=== PATIENT | female | born 1990 | race Caucasian/White ===

== ENCOUNTER 2017-11-19 17:35 | Emergency (ER) | payer OTHER ==
[~2017-11-19] VITALS: Ht 149.9 cm; Wt 43.5 kg
[2017-11-19 17:52] VITALS: BP 114/74; Ht 149.9 cm; Wt 43.5 kg
== END 2017-11-19 19:09 | disposition home or self-care (01) ==
LOC: ED 17:35
DX: R10.32 Left lower quadrant pain (principal); R19.7 Diarrhea, unspecified; K42.9 Umbilical hernia without obstruction or gangrene; Z91.041 Radiographic dye allergy status

== ENCOUNTER 2018-03-23 19:37 | Emergency (ER) | payer OTHER ==
[~2018-03-23] VITALS: Ht 149.9 cm; Wt 44.5 kg
[2018-03-23 19:55] VITALS: BP 113/62; Ht 149.9 cm; Wt 44.5 kg
[2018-03-23 20:25] LABS: BASOPHIL % 0.4 % (0-2); RED CELL DISTRIBUTION WIDTH 13.5 % (11.5-14.5)
[2018-03-23 20:34] LABS: PLATELET COUNT 411 x10^3mcL (130-400)
[2018-03-23 20:36] LABS: CALCIUM 8.8 mg/dL (8.5-10.1); CARBON DIOXIDE 29.5 mmol/L (21-32); CHLORIDE SERUM 106 mmol/L (98-107); CREATININE SERUM 0.5 mg/dL (0.6-1.0); GFR1 > 60 mL/min; GLUCOSE SERUM 115 mg/dL (74-106); SODIUM SERUM 142 mmol/L (136-145)
== END 2018-03-23 21:13 | disposition home or self-care (01) ==
LOC: ED 19:37
PROVIDERS: Emergency Medicine
DX: N83.201 Unspecified ovarian cyst, right side (principal); E87.6 Hypokalemia; Z88.8 Allergy status to other drugs, medicaments and biological substances; Z98.51 Tubal ligation status; Z98.890 Other specified postprocedural states
CPT/HCPCS: 36415; Q0092

== ENCOUNTER 2018-12-11 16:47 | Emergency (ER) | payer OTHER ==
[~2018-12-11] VITALS: Ht 149.9 cm; Wt 49.4 kg
[2018-12-11 16:57] VITALS: BP 102/70; Ht 149.9 cm; Wt 49.4 kg
== END 2018-12-11 18:21 | disposition left against medical advice (07) ==
LOC: ED 16:47
DX: Z53.21 Procedure and treatment not carried out due to patient leaving prior to being seen by health care provider (principal)

== ENCOUNTER 2019-01-21 22:40 | Emergency (ER) | payer SELFPAY ==
[~2019-01-21] VITALS: Ht 149.9 cm; Wt 51.7 kg
[2019-01-21 22:59] VITALS: Ht 149.9 cm; Wt 51.7 kg
[2019-01-21 23:56] LABS: BASOPHIL % 0.4 % (0-2); PLATELET COUNT 369 x10^3mcL (130-400); RED CELL DISTRIBUTION WIDTH 12.9 % (11.5-14.5)
[2019-01-22 00:08] LABS: CALCIUM 8.6 mg/dL (8.5-10.1); CARBON DIOXIDE 29.1 mmol/L (21-32); CHLORIDE SERUM 104 mmol/L (98-107); CREATININE SERUM 0.6 mg/dL (0.6-1.0); GFR1 > 60 mL/min; GLUCOSE SERUM 99 mg/dL (74-106); SODIUM SERUM 141 mmol/L (136-145)
[2019-01-22 00:12] LABS: ALBUMIN 3.9 g/dL (3.4-5.0); ALKALINE PHOSPHATASE 107 U/L (46-116); ALT/SGPT 18 U/L (14-59); AST/SGOT 15 U/L (15-37); BILIRUBIN TOTAL 0.5 mg/dL (0.20-1.00); TOTAL PROTEIN, SERUM 7.4 g/dL (6.4-8.2)
[2019-01-22 01:12] VITALS: BP 128/78
== END 2019-01-22 01:13 | disposition home or self-care (01) ==
LOC: ED 22:40
PROVIDERS: Emergency Medicine
DX: J18.9 Pneumonia, unspecified organism (principal); Z98.890 Other specified postprocedural states; Z90.49 Acquired absence of other specified parts of digestive tract; Z98.51 Tubal ligation status
CPT/HCPCS: 36415; 83880

== ENCOUNTER 2019-04-18 09:36 | Emergency (ER) | payer SELFPAY ==
[~2019-04-18] VITALS: Ht 149.9 cm; Wt 50.3 kg
[2019-04-18 11:06] VITALS: BP 117/52; Ht 149.9 cm; Wt 50.3 kg
== END 2019-04-18 12:12 | disposition left against medical advice (07) ==
LOC: ED 09:36
DX: Z53.21 Procedure and treatment not carried out due to patient leaving prior to being seen by health care provider (principal)

== ENCOUNTER 2019-04-19 00:36 | Emergency (ER) | payer SELFPAY ==
[~2019-04-19] VITALS: Ht 149.9 cm; Wt 50.4 kg
[2019-04-19 00:39] VITALS: Ht 149.9 cm; Wt 50.4 kg
[2019-04-19 02:25] VITALS: BP 99/55
== END 2019-04-19 02:25 | disposition home or self-care (01) ==
LOC: ED 00:36
DX: S06.0X0A Concussion without loss of consciousness, initial encounter (principal); Z88.1 Allergy status to other antibiotic agents; Z98.890 Other specified postprocedural states; Z90.49 Acquired absence of other specified parts of digestive tract; W20.8XXA Other cause of strike by thrown, projected or falling object, initial encounter; Y93.89 Activity, other specified; Y92.89 Other specified places as the place of occurrence of the external cause; Y99.8 Other external cause status
CPT/HCPCS: J1885; Q0162

== ENCOUNTER 2020-04-26 13:15 | Emergency (ER) | payer OTHER ==
[~2020-04-26] VITALS: Ht 149.9 cm; Wt 51.7 kg
[2020-04-26 14:53] VITALS: Ht 149.9 cm; Wt 51.7 kg
[2020-04-26 17:23] LABS: BASOPHIL % 0.5 % (0.2-1.3); PLATELET COUNT 395 x10^3mcL (179-408); RED CELL DISTRIBUTION WIDTH 12.9 % (12.3-17.7)
[2020-04-26 17:34] LABS: CALCIUM 9.2 mg/dL (8.5-10.1); CARBON DIOXIDE 25.8 mmol/L (21-32); CHLORIDE SERUM 102 mmol/L (98-107); CREATININE SERUM 0.6 mg/dL (0.6-1.0); GFR1 > 60 mL/min; GLUCOSE SERUM 91 mg/dL (74-106); POTASSIUM SERUM 3.6 mmol/L (3.5-5.1); SODIUM SERUM 137 mmol/L (136-145)
[2020-04-26 17:38] LABS: ALBUMIN 4.2 g/dL (3.4-5.0); ALKALINE PHOSPHATASE 112 U/L (46-116); ALT/SGPT 30 U/L (14-59); AST/SGOT 16 U/L (15-37); BILIRUBIN TOTAL 0.65 mg/dL (0.20-1.00); TOTAL PROTEIN, SERUM 8.3 g/dL (6.4-8.2)
[2020-04-26 18:31] LABS: rbc morphology (normal/abnorm) NORMAL (NORMAL)
[2020-04-26 19:40] LABS: UA SPECIFIC GRAVITY >=1.030 (1.005-1.035); microscopic required? YES; urine erythrocyte 1+ (NEGATIVE)
[2020-04-26 20:40] VITALS: BP 107/67
== END 2020-04-26 20:40 | disposition home or self-care (01) ==
LOC: ED 13:15
PROVIDERS: Emergency Medicine
DX: R10.9 Unspecified abdominal pain (principal); R11.0 Nausea; R63.0 Anorexia
CPT/HCPCS: 87491; 87591